=== PATIENT | female | born 1975 | race American Indian/Alaskan Native ===

== ENCOUNTER 2020-12-07 11:38 | Outpatient (CLI) | payer BC ==
--- NOTE | 2020-12-07 14:55 | Mammography Report ---
DIGITAL SCREENING MAMMOGRAM WITH CAD, 12/07/2020 CLINICAL INFORMATION / INDICATION: Routine screening mammography. SCREENING WITH TYE TECHNIQUE: Digital bilateral 2D mammography was obtained in the craniocaudal and mediolateral obliqu e projections. This examination was interpreted with the benefit of Computer-Aided Detection analysis . COMPARISON: None available FINDINGS: Breast Density: There are scattered areas of fibroglandular density. No dominant mass, suspicious calcifications, or architectural distortion in either breast. IMPRESSION: No mammographic evidence of malignancy. Follow up recommendation: Routine yearly BI-RADS Category 1: Negative. A "normal" or negative report should not discourage follow up or biopsy of a clinically significant f inding. A written summary of these findings will be mailed to the patient. The patient will be entered into a mammography reporting system which will generate a reminder letter for the patient's next appointmen t at the appropriate interval. The [employer] recommends yearly mammograms starting at age 40 and continuing as l clint as a woman is in good health. Breast MRI is recommended for women with an approximate 20-25% or greater lifetime risk of breast cancer, including women with a strong family history of breast or ova ricco cancer or who have been treated for Hodgkin's disease. Signer Name: Stas Perez MD Signed: 12/07/2020 2:51 PM Workstation Name: [employer]
== END 2020-12-07 11:39 | disposition home or self-care (01) ==
LOC: SPVWC 11:38
PROVIDERS: ATTEND Obstetrics & Gynecology
DX: Z12.31 Encounter for screening mammogram for malignant neoplasm of breast (principal)
CPT/HCPCS: 77063; 77067

== ENCOUNTER 2022-04-08 13:48 | Inpatient (IN) | payer BC ==
[2022-04-08] MEDS ORDERED: IBUPROFEN 800 MG TAB PO ONE (14:22)
[2022-04-08] MEDS ORDERED: IBUPROFEN 800 MG TAB ONE (14:23)
[2022-04-08] MEDS ORDERED: MORPHINE 4 MG/1 ML INJ IV ONE ×2 (14:59→18:47)
[2022-04-08] MEDS ORDERED: SODIUM CHLORIDE 0.9% 1000 ML 1,000 ML IV ONE ×2 (14:59→17:49)
[2022-04-08] MEDS ORDERED: ONDANSETRON 4 MG/2 ML INJ IV ONE (14:59)
--- NOTE | 2022-04-08 15:06 | Emergency Department Report ---
ED Fever HPI - General Chief Complaint: Extremity Injury, Lower Stated Complaint: BACK PAIN/LEG PAIN Time Seen by Provider: 04/08/22 14:42 Source: patient Exam Limitations: no limitations - History of Present Illness Initial Comments: 47-year-old female history of multiple sclerosis currently on Ocrevus infusion every 6 months presents to the emergency department with joint pain and fever. Patient reports she did have an infusion yesterday afternoon however she reports that last night she started experiencing chills, body aches, joint pain dental pain and pain all over her legs . "She did go to the dentist this morning and had x-rays done and was told that the pain was not coming from her teeth. She she did not visit her primary care physician's office and was told her vital signs were stable, but she needed to call her MS doctor otherwise be referred to pain management. She did call her MS doctor's office who recommended to go to the emergency department for further evaluation since her pain was 10/10". Patient reports she has been on Ocrevus for "a while and this is not her first infusion". She describes sharp throbbing pain in her joints, difficulty walking difficulty bending or moving her joints due to pain, she denies any pain or injury, no nausea vomiting abdominal pain, no weakness,. No chest pain, no shortness of breath, no coughing, no known sick contacts, No itching, no angioedema Timing/Duration: yesterday Fever Severity/Quality: subjective Associated Symptoms: muscle aches, rash. denies: abdominal pain, chest pain, confusion, headache, nausea/vomiting, shortness of breath, sore throat ED Review of Systems ROS: Stated complaint: BACK PAIN/LEG PAIN Other details as noted in HPI Constitutional: chills, fever. denies: weakness ENT: dental pain Respiratory: denies: cough, shortness of breath Cardiovascular: denies: chest pain, palpitations Gastrointestinal: denies: abdominal pain, nausea, vomiting, diarrhea, constipation Genitourinary: denies: urgency, frequency Musculoskeletal: back pain, joint swelling, arthralgia, myalgia Skin: rash Neurological: denies: headache, weakness, numbness, paresthesias Psychiatric: denies: anxiety Hematological/Lymphatic: denies: easy bleeding ED Past Medical Hx - Past Medical History Previous Medical History?: Yes Hx GERD: Yes Hx Sickle Cell Disease: No Hx HIV: No Additional medical history: ms ,anemia - Surgical History Past Surgical History?: No - Social History Smoking Status: Never Smoker - Medications Home Medications: Home Medications Medication Instructions Recorded Confirmed Last Taken Type Famotidine [Pepcid] 20 mg PO DAILY 01/14/22 01/14/22 Unknown History Ocrevus-Infusion 1 dose IV [id number] 01/14/22 Unknown History Vitamin B12 2,000 units PO DAILY 01/14/22 01/14/22 Unknown History Ibuprofen [Motrin 800 MG tab] 800 mg PO Q8H PRN #30 tablet 01/24/22 Unknown Rx oxyCODONE /ACETAMINOPHEN [Percocet 2 tab PO Q6H PRN #14 tablet 01/24/22 Unknown Rx 5/325 mg] ED Physical Exam - General Limitations: No Limitations General appearance: alert, in no apparent distress - Head Head exam: Present: atraumatic - Eye Eye exam: Present: normal appearance - ENT ENT exam: Present: normal exam, normal orophraynx - Neck Neck exam: Present: normal inspection. Absent: tenderness - Respiratory Respiratory exam: Present: normal lung sounds bilaterally. Absent: respiratory distress, wheezes, chest wall tenderness - Cardiovascular Cardiovascular Exam: Present: tachycardia, normal heart sounds - GI/Abdominal GI/Abdominal exam: Present: soft, normal bowel sounds. Absent: distended, tenderness - Extremities Exam Extremities exam: Present: tenderness, joint swelling, other (Patient elicits tenderness all over her joints including her hands, knuckles, difficulty gripping due to swelling and pain.) - Back Exam Back exam: Present: normal inspection, full ROM. Absent: CVA tenderness (R), CVA tenderness (L) - Neurological Exam Neurological exam: Present: alert, oriented X3, CN II-XII intact, normal gait. Absent: motor sensory deficit - Psychiatric Psychiatric exam: Present: normal affect, normal mood - Skin Skin exam: Present: warm, dry, erythema (There is warmth and tenderness over her left hand) ED Course Vital Signs 04/08/22 14:18 Temperature 102.4 F H Pulse Rate 119 H Respiratory 18 Rate Blood Pressure 169/87 [Left] O2 Sat by Pulse 99 Oximetry ED Medical Decision Making - Lab Data Result diagrams: 04/08/22 15:27 04/08/22 15:27 - Medical Decision Making 47-year-old female history of multiple sclerosis immunocompromise on MAB Ocrevus infusion every 6 months presenting with fever and joint pain generalized body aches x24 hours. Due to patient's immunocompromise status, with a trigger for SIRS as evidenced by tachycardia, fever, lactic without a source at this point, plan to admit for further work-up. Antibiotics IV fluid resuscitation and broad-spectrum antibiotics all ordered. 1813-paged the hospitalist spoke with Dr. Goddard for admission. Recommended that I speak with the patient's neurologist first. 1817-I called the neurology services for Dr. Dickson Jordan at [phone] [facility] awaiting callback. 1836-patient admitted by hospitalist Dr. Goddard. 1850- Dr Julian Forman neurologist called back "no recommendations at this time patient has been on Ocrevus for many years treated appropriately, can follow-up at discharge". 1852-I have communicated this information to the hospitalist Dr. Goddard. Who is also aware of patient's condition. Patient is stable at this time vital signs are stable, she is tolerating oral intake without vomiting, no weakness of her extremities, maintains her airway without oxygen, she agrees with the plan for admission. Critical care attestation.: If time is entered above; I have spent that time in minutes in the direct care of this critically ill patient, excluding procedure time. ED Disposition Clinical Impression: Immunocompromised patient, Multiple sclerosis, SIRS (systemic inflammatory response syndrome), Arthralgia Disposition: ADMITTED INPATIENT Is pt being admited?: Yes Does the pt Need Aspirin: No Condition: Stable Referrals: RAHEEM CARDOSO MD [Primary Care Provider] - 3-5 Days
[2022-04-08] MEDS ORDERED: methylPREDNISolone Sod Succinate 125 MG/2 ML INJ IV ONE (15:15)
[2022-04-08] MEDS ORDERED: diphenhydrAMINE 50 MG/ML VIAL IV ONE (15:15)
--- NOTE | 2022-04-08 15:21 | XRay Report ---
CHEST 1 VIEW 04/08/2022 2:15 PM INDICATION / CLINICAL INFORMATION: fever, sepsis. COMPARISON: None available. FINDINGS: SUPPORT DEVICES: None. HEART / MEDIASTINUM: No significant abnormality. LUNGS / PLEURA: No significant pulmonary or pleural abnormality. No pneumothorax. ADDITIONAL FINDINGS: No significant additional findings. IMPRESSION: 1. No acute findings. Signer Name: Mitchel Irwin MD Signed: 04/08/2022 3:16 PM Workstation Name: [employer]
[2022-04-08 15:52] LABS: Hematocrit 35.3 % (30.3-42.9); Hemoglobin 11.3 gm/dl (10.1-14.3); Mean Corpuscular HGB Conc 32 % (30-34); Mean Corpuscular Volume 101 fl (79-97); Platelet Count 284 K/mm3 (140-440); Red Cell Distribution Width 14.6 % (13.2-15.2)
[2022-04-08 16:09] LABS: Alanine Aminotransferase 8 units/L (7-56); BUN/Creatinine Ratio 11; Blood Urea Nitrogen 9 mg/dL (7-17); Calcium 8.4 mg/dL (8.4-10.2); Hemolysis Index 65
[2022-04-08] MEDS ORDERED: SODIUM CHLORIDE 0.9% IV ONE (18:07)
--- NOTE | 2022-04-08 18:49 | History and Physical Report ---
History of Present Illness Chief complaint: I am just sore all over History of present illness: 47 YO Female with Obesity, GERD, MS S/P Ocrevus Infusion yesterday presents ED for evaluation. Patient reports "I am sore all over". Patient states that she has experienced body aches, subjective fever, chills, over the past 1 day with persistent symptoms over the same timeframe. Patient states that her joint pain is 10/10, constant, worsened with ambulation relieved with movement. Patient states that she was seen and evaluated by her primary care physician as well as her neurologist and was instructed to seek further care. Patient denies chest pain, palpitation, productive cough, skin rash, recent contact, generalized weakness, confusion, changes in strength or administering to bilateral upper and lower extremities, decreased exercise tolerance, shortness of breath, or balance difficulty. Patient transported to [facility] via private vehicle for further care and evaluation of the aforementioned symptoms. The patient was seen and evaluated emergency department. All lab and imaging studies reviewed. Patient found to be febrile to 102 F. Patient found to have symptoms consistent with infusion reaction, arthralgias, metabolic acidosis, hyponatremia, systemic inflammatory response syndrome. Patient admitted to medical floor and treated with supportive care. Patient treated with empiric dose of IV antibiotic therapy in the emergency department. No prior admission for review. All medication listed at time of admission has been reconciled. Advanced care planning conducted in ED. Past History Past Medical History: GERD, other (See HPI) Past Surgical History: No surgical history Social history: , lives with family. denies: smoking, alcohol abuse, prescription drug abuse Family history: hypertension Medications and Allergies Allergies Allergy/AdvReac Type Severity Reaction Status Date / Time shellfish derived AdvReac Severe Swelling Verified 01/14/22 15:45 Home Medications Medication Instructions Recorded Confirmed Last Taken Type Famotidine [Pepcid] 20 mg PO DAILY 01/14/22 01/14/22 Unknown History Ocrevus-Infusion 1 dose IV [id number] 01/14/22 Unknown History Vitamin B12 2,000 units PO DAILY 01/14/22 01/14/22 Unknown History Ibuprofen [Motrin 800 MG tab] 800 mg PO Q8H PRN #30 tablet 01/24/22 Unknown Rx oxyCODONE /ACETAMINOPHEN [Percocet 2 tab PO Q6H PRN #14 tablet 07/07/22 Unknown Rx 5/325 mg] Active Meds: Active Medications Piperacillin Sod/Tazobactam Sod (Zosyn/Ns 4.5gm/100ml) 4.5 gm in 100 mls @ 200 mls/hr IV Q8H [facility]; Protocol Review of Systems Constitutional: chills, no weight loss, no weight gain, no fatigue, no weakness, no malaise, no lethargy Ears, nose, mouth and throat: no ear pain, no ear discharge, no tinnitis, no decreased hearing, no nose pain Breasts: no change in shape, no swelling, no mass Cardiovascular: no chest pain, no rapid/irregular heart beat, no edema Respiratory: no cough, no hemoptysis Gastrointestinal: no abdominal pain, no nausea, no vomiting, no diarrhea, no constipation Genitourinary Female: no pelvic pain, no flank pain, no dysuria, no urinary frequency, no urgency Rectal: no pain, no incontinence, no bleeding Musculoskeletal: other (Joint pain) Integumentary: no rash, no pruritis, no redness, no sores, no wounds Neurological: no head injury, no transient paralysis, no paralysis, no weakness, no parathesias, no tingling, no seizures, no syncope, no tremors, no ataxia, no lack of coordination, no headaches, no convulsions, no change in speech, no change in mentation, no confusion, no balance difficulties, no gait dysfunction, no motor disturbance, no sensory deficit, no double vision, no loss of vision, no paralysis, no spasticity Psychiatric: no anxiety, no memory loss, no change in sleep habits, no insomnia, no hypersomnia, no change in libido Endocrine: no cold intolerance, no heat intolerance, no polyphagia, no polydipsia, no polyuria, no nocturia Hematologic/Lymphatic: no easy bruising, no easy bleeding Allergic/Immunologic: no urticaria, no allergic rhinitis, no wheezing Exam - Constitutional Vitals: Temp Pulse Resp BP Pulse Ox 102.4 F H 119 H 18 169/87 99 04/08/22 14:18 04/08/22 14:18 04/08/22 14:18 04/08/22 14:18 04/08/22 14:18 General appearance: Present: mild distress, obese - EENT Eyes: Present: PERRL ENT: hearing intact, clear oral mucosa - Neck Neck: Present: supple, normal ROM - Respiratory Respiratory effort: normal Respiratory: bilateral: CTA - Cardiovascular Heart Sounds: Present: S1 & S2. Absent: rub, click - Extremities Extremities: pulses symmetrical, No edema Peripheral Pulses: within normal limits - Abdominal General gastrointestinal: Present: soft, non-tender, non-distended, normal bowel sounds Female genitourinary: Present: normal - Integumentary Integumentary: Present: clear, warm, dry - Musculoskeletal Musculoskeletal: gait normal, strength equal bilaterally - Psychiatric Psychiatric: appropriate mood/affect, intact judgment & insight - Neurologic Neurologic: CNII-XII intact, moves all extremities Results - Labs CBC & Chem 7: 04/08/22 15:27 04/08/22 15:27 Labs: Abnormal lab results 04/08/22 04/08/22 04/08/22 Range/Units 15:27 15:27 15:27 WBC 16.1 H (4.5-11.0) K/mm3 RBC 3.50 L (3.65-5.03) M/mm3 MCV 101 H (79-97) fl Sodium 135 L (137-145) mmol/L Carbon Dioxide 21 L (22-30) mmol/L Glucose 140 H (65-100) mg/dL Lactic Acid 3.80 H* (0.7-2.0) mmol/L C-Reactive Protein 7.40 H (0.00-1.30) mg/dL Assessment and Plan - Patient Problems (1) Infusion reaction Current Visit: Yes Status: Acute Qualifiers: Encounter type: initial encounter Qualified Code(s): T80.90XA - Unspecified complication following infusion and therapeutic injection, initial encounter Plan to address problem: Patient symptoms suspected secondary to Ocrevus infusion on 04/07/2022. Supportive care, continue medical management. Neurology team, Dr. Dickson Jordan notified. Symptoms discussed. No additional recommendations made. will see patient in follow-up after discharge. (2) SIRS (systemic inflammatory response syndrome) Current Visit: Yes Status: Acute Plan to address problem: CBC, CMP, IV fluid resuscitation therapy, chest x-ray, urinalysis, empiric IV antibiotic therapy x1 dose. Repeat CBC in AM. (3) Metabolic acidosis Current Visit: Yes Status: Acute Plan to address problem: IV for resuscitation therapy, supportive care, repeat BMP in a.m. (4) Hyponatremia Current Visit: Yes Status: Acute (5) Arthralgia Current Visit: Yes Status: Acute Plan to address problem: NSAID therapy as clinically indicated, pain control, supportive care. (6) Multiple sclerosis Current Visit: Yes Status: Chronic Plan to address problem: Supportive care,. Patient is status post Ocrevus infusion yesterday. Continue medical management. Outpatient neurology follow-up. Outpatient follow-up with primary care physician. (7) DVT prophylaxis Current Visit: Yes Status: Acute Plan to address problem: SCD to bilateral extremities while in bed (8) Advance care planning Current Visit: Yes Status: Acute Plan to address problem: Disease education done, care plan discussed, diagnoses discussed, prognosis discussed, patient is full code. Patient knowledges understanding and agreement with care plan, +30 minutes. (9) Preventative health care Current Visit: Yes Status: Acute Plan to address problem: Patient counseled on risk factor reduction, balanced diet, weight reduction, outpatient follow-up with pulmonary for sleep study. +30 minutes. Patient to follow-up with ben day artist for all age and risk factor appropriate screening test. Patient to follow-up with primary care physician for all age and risk factor appropriate screening test.
[2022-04-08] MEDS ORDERED: ONDANSETRON 4 MG/2 ML INJ IV PRN (19:02)
[2022-04-08] MEDS ORDERED: ALBUTEROL 2.5 MG/3 ML NEBU IH PRN (19:02)
[2022-04-08] MEDS ORDERED: ACETAMINOPHEN 325 MG TAB PO PRN (19:02)
[2022-04-08] MEDS ORDERED: IBUPROFEN 800 MG TAB PO PRN (19:04)
--- NOTE | 2022-04-08 19:14 | XRay Report ---
Left hand 3 views INDICATION: Left hand pain after injury IMPRESSION: Slight soft tissue edema of the index and middle finger. The bones and joint spaces appea r grossly unremarkable. There is some swelling of the dorsal soft tissues of the middle finger MCP. T he joint spaces appear well-maintained. Signer Name: Pelon Howard MD Signed: 04/08/2022 7:10 PM Workstation Name: [employer]
[2022-04-08 20:33] LABS: Basophils % (Manual) 0 % (0.0-1.8); Eosinophils % (Manual) 0 % (0.0-4.3); Total Cells Counted 100
[2022-04-08 20:34] LABS: RBC Morphology Normal
[2022-04-08 21:01] LABS: Erythrocyte Sedimentation Rate 30 mm/Hr (0-20)
[2022-04-08] MEDS: PIPERACIL/TAZOBACTA 4.5/NS 100 4.5 GM/100 ML VIAL IV SCH (23:55)
[2022-04-08] MEDS: SODIUM CHLORIDE 0.9% 1000 ML 1,000 ML IV SCH (23:55)
[2022-04-08] MEDS: MORPHINE 4 MG/1 ML INJ IV PRN (23:56)
[2022-04-09] MEDS: MORPHINE 4 MG/1 ML INJ IV PRN ×2 (04:59→12:24)
[2022-04-09 05:00] VITALS: BP 147/75
[2022-04-09] MEDS ORDERED: PIPERACIL/TAZOBACTA 4.5/NS 100 4.5 GM/100 ML VIAL IV SCH (08:00)
[2022-04-09] MEDS: SODIUM CHLORIDE 0.9% 1000 ML 1,000 ML IV SCH (08:16)
[2022-04-09 08:30] LABS: Hematocrit 32.9 % (30.3-42.9); Hemoglobin 10.7 gm/dl (10.1-14.3); Mean Corpuscular HGB Conc 33 % (30-34); Mean Corpuscular Volume 98 fl (79-97); Platelet Count 320 K/mm3 (140-440); Red Blood Count 3.36 M/mm3 (3.65-5.03)
[2022-04-09 08:52] LABS: BUN/Creatinine Ratio 10; Blood Urea Nitrogen 6 mg/dL (7-17); Calcium 8.1 mg/dL (8.4-10.2); Hemolysis Index 3
[2022-04-09] MEDS: oxyCODONE /ACETAMINOPHEN 5-325MG TAB PO PRN ×2 (09:39→17:31)
[2022-04-09] MEDS ORDERED: FAMOTIDINE 20 MG TAB PO SCH (10:00)
[2022-04-09] MEDS ORDERED: VITAMIN B12 PO SCH (10:00)
[2022-04-09] MEDS ORDERED: CYANOCOBALAMIN (VIT B-12) 1000 MCG TAB PO SCH (10:00)
[2022-04-09 10:50] LABS: Basophils % (Manual) 0 % (0.0-1.8); Eosinophils % (Manual) 0 % (0.0-4.3); Total Cells Counted 100
[2022-04-09 10:51] LABS: Platelet Estimate Consistent w Auto; RBC Morphology Normal
[2022-04-09] MEDS: PIPERACIL/TAZOBACTA 4.5/NS 100 4.5 GM/100 ML VIAL IV SCH (12:23)
--- NOTE | 2022-04-09 14:57 | Discharge Summary ---
Providers - Providers Date of Admission: 04/08/22 19:02 Attending physician: BENNY MOE Primary care physician: RAHEEM CARDOSO Hospitalization Condition: Stable Disposition: 30 STILL A PATIENT - Discharge Diagnoses (1) Infusion reaction Status: Acute Qualifiers: Encounter type: initial encounter Qualified Code(s): T80.90XA - Unspecified complication following infusion and therapeutic injection, initial encounter (2) SIRS (systemic inflammatory response syndrome) Status: Acute (3) Metabolic acidosis Status: Acute (4) Hyponatremia Status: Acute (5) Arthralgia Status: Acute (6) Multiple sclerosis Status: Chronic (7) DVT prophylaxis Status: Acute (8) Advance care planning Status: Acute (9) Preventative health care Status: Acute Exam - Constitutional Vitals: Temp Pulse Resp BP Pulse Ox 98.1 F 58 L 18 147/75 95 04/09/22 04:58 04/09/22 04:58 04/09/22 04:58 04/09/22 04:58 04/09/22 04:58 Plan Follow up with: RAHEEM CARDOSO MD [Primary Care Provider] - 3-5 Days Prescriptions: oxyCODONE /ACETAMINOPHEN [Percocet 5/325] 1 tab PO Q6HR PRN #20 tablet PRN Reason: Pain Prednisone [predniSONE 10 mg (6-Day Pack, 21 Tabs)] 10 mg PO .TAPER #1
== END 2022-04-09 18:13 | disposition home or self-care (01) | DRG 315 ==
LOC: ED 13:48 → 3A 19:02
PROVIDERS: ADMIT Internal Medicine; ATTEND Internal Medicine
DX: T80.90XA Unspecified complication following infusion and therapeutic injection, initial encounter (principal); E87.1 Hypo-osmolality and hyponatremia; R65.10 Systemic inflammatory response syndrome (SIRS) of non-infectious origin without acute organ dysfunction; E87.2 Acidosis; M25.50 Pain in unspecified joint; G35 Multiple sclerosis; K21.9 Gastro-esophageal reflux disease without esophagitis; E66.9 Obesity, unspecified; Y83.8 Other surgical procedures as the cause of abnormal reaction of the patient, or of later complication, without mention of misadventure at the time of the procedure; Y92.89 Other specified places as the place of occurrence of the external cause; Z82.49 Family history of ischemic heart disease and other diseases of the circulatory system; Z91.013 Allergy to seafood; Z68.34 Body mass index [BMI] 34.0-34.9, adult
CPT/HCPCS: 36415; 71045; 80048; 80053; 82140; 85007; 85025; 85652; 86140; 87040; 96374; 96375; 99285; G0378; J1200; J2270; J2405; J2543; J2930; J7030